=== PATIENT | male | born 1940 | race Caucasian/White ===

== ENCOUNTER 2023-03-09 15:46 | Outpatient (CLI) | payer MEDICARE, OTHER ==
[~2023-03-09 15:46] MED LIST: ALBU8HFA IH; ALLO100T PO; FLO44IN IH; HYDR-3095 PO; LORA1TAB PO; MOME17SP5 NS; THY15T PO
[2023-03-09] MEDS ORDERED: GADOTERATE MEGLUMINE 7.5 MMOL/15 ML VIAL IV ONE (17:20)
== END 2023-03-09 23:59 | disposition home or self-care (01) ==
LOC: RAD 15:46
PROVIDERS: ATTEND Family Medicine
DX: R16.0 Hepatomegaly, not elsewhere classified (principal); K80.20 Calculus of gallbladder without cholecystitis without obstruction; K86.89 Other specified diseases of pancreas; N28.1 Cyst of kidney, acquired; I77.1 Stricture of artery; K44.9 Diaphragmatic hernia without obstruction or gangrene; R10.9 Unspecified abdominal pain
CPT/HCPCS: 74183; A9575

== ENCOUNTER 2023-09-06 08:38 | Outpatient (CLI) | payer MEDICARE, OTHER ==
[2023-09-06] MEDS ORDERED: GADOTERATE MEGLUMINE 7.5 MMOL/15 ML VIAL IV ONE (10:18)
== END 2023-09-06 23:59 | disposition home or self-care (01) ==
LOC: RAD 08:38
PROVIDERS: ATTEND Family Medicine
DX: G44.221 Chronic tension-type headache, intractable (principal); G44.52 New daily persistent headache (NDPH)
CPT/HCPCS: 70553; A9575

== ENCOUNTER 2024-03-08 09:50 | Outpatient (CLI) | payer MEDICARE, OTHER ==
[2024-03-08 10:25] LABS: BASOPHILS % (AUTO) 0.4 % (0-1); EOSINOPHILS # (AUTO) 0.2 X10'3 (0-0.9); EOSINOPHILS % (AUTO) 1.9 % (0-6); HEMATOCRIT 42.9 % (42.0-52.0); MEAN CORPUSCULAR HEMOGLOBIN 30.4 PG (27.0-31.0); MEAN CORPUSCULAR HGB CONC 32.7 g/dL (33.0-36.5); MEAN CORPUSCULAR VOLUME 93.1 FL (78-98); MONOCYTES # (AUTO) 0.7 X10'3 (0-0.9); MONOCYTES % (AUTO) 7.1 % (2-12); NEUTROPHILS # (AUTO) 8.1 X10'3 (1.8-7.7); NEUTROPHILS % (AUTO) 80.6 % (42-75); PLATELET COUNT 220 X10'3 (140-440); RED BLOOD COUNT 4.61 X10'6 (4.70-6.10); RED CELL DISTRIBUTION WIDTH 15.3 % (11.5-14.5)
[2024-03-08] MEDS ORDERED: IODIXANOL 320 MG/ML INFUS..BTL 100ML IV ONE (10:31)
[2024-03-08 10:36] LABS: APTT 27 SECONDS (22-32); PROTHROMBIN TIME 10.4 SECONDS (9.0-12.0)
[2024-03-08 11:18] LABS: ALANINE AMINOTRANSFERASE 8 U/L (12-78); ALBUMIN 3.2 G/DL (3.4-5.0); ALBUMIN/GLOBULIN RATIO 0.8 (1.1-1.5); ALKALINE PHOSPHATASE 111 IU/L (46-116); ANION GAP 11 (8-16); ASPARTATE AMINO TRANSFERASE 15 U/L (10-37); BILIRUBIN,TOTAL 0.5 MG/DL (0.1-1.0); BLOOD UREA NITROGEN 24 MG/DL (7-18); BUN/CREATININE RATIO 21.4 (10.0-20.0); CHLORIDE 106 MMOL/L (99-107); CREATININE 1.12 MG/DL (0.60-1.10); GLUCOSE 111 MG/DL (70-104); POTASSIUM 4.1 MMOL/L (3.5-5.1); PRO BRAIN NATRIURETIC PEPTIDE 112 PG/ML (0-450); SODIUM 141 MMOL/L (135-145); TOTAL CARBON DIOXIDE 24.2 MMOL/L (24-32); eGFR 63 ML/MIN
[2024-03-08] MEDS ORDERED: diphenhydrAMINE 50 mg/ml inj ONE (11:52)
== END 2024-03-08 23:59 | disposition home or self-care (01) ==
LOC: RAD 09:50
PROVIDERS: ATTEND Internal Medicine Cardiovascular Disease
DX: N28.1 Cyst of kidney, acquired (principal); N20.0 Calculus of kidney; I65.29 Occlusion and stenosis of unspecified carotid artery; I35.0 Nonrheumatic aortic (valve) stenosis; K44.9 Diaphragmatic hernia without obstruction or gangrene; R91.1 Solitary pulmonary nodule; J98.4 Other disorders of lung; J98.11 Atelectasis; M41.86 Other forms of scoliosis, lumbar region; M43.8X7 Other specified deforming dorsopathies, lumbosacral region; R06.02 Shortness of breath; I70.0 Atherosclerosis of aorta
CPT/HCPCS: 36415; 71046; 71275; 74174; 75572; 80053; 83880; 85025; 85610; 85730; J3490; Q9967; J1200

== ENCOUNTER 2024-04-27 07:39 | Inpatient (IN) | payer MEDICARE, OTHER ==
[2024-04-21 13:22] LABS: BASOPHILS % (AUTO) 0.4 % (0-1); EOSINOPHILS # (AUTO) 0.1 X10'3 (0-0.9); EOSINOPHILS % (AUTO) 0.9 % (0-6); LYMPHOCYTES # (AUTO) 1.2 X10'3 (1.1-4.8); LYMPHOCYTES % (AUTO) 15.1 % (21-51); MEAN CORPUSCULAR HEMOGLOBIN 30.7 PG (27.0-31.0); MEAN CORPUSCULAR HGB CONC 32.7 g/dL (33.0-36.5); MEAN CORPUSCULAR VOLUME 93.8 FL (78-98); MEAN PLATELET VOLUME 8.3 FL (7.4-10.4); MONOCYTES # (AUTO) 0.5 X10'3 (0-0.9); MONOCYTES % (AUTO) 6.2 % (2-12); NEUTROPHILS # (AUTO) 6.2 X10'3 (1.8-7.7); NEUTROPHILS % (AUTO) 77.4 % (42-75); PRE OP HEMATOCRIT 41.8 % (42.0-52.0); PRE OP HEMOGLOBIN 13.7 g/dL (14.0-17.9); PRE OP PLATELET COUNT 226 X10'3 (140-440); RED BLOOD COUNT 4.46 X10'6 (4.70-6.10); RED CELL DISTRIBUTION WIDTH 15.6 % (11.5-14.5)
[2024-04-21 13:33] LABS: PRE OP PROTIME 10.6 SECONDS (9.0-12.0)
[2024-04-21 13:43] LABS: ALBUMIN 3.6 G/DL (3.4-5.0); ALKALINE PHOSPHATASE 99 IU/L (46-116); BLOOD UREA NITROGEN 19 MG/DL (7-18); BUN/CREATININE RATIO 17.8 (10.0-20.0); CALCIUM 9.2 MG/DL (8.5-10.1); CHLORIDE 102 MMOL/L (99-107); CREATININE 1.07 MG/DL (0.60-1.10); PRE OP ALT 17 U/L (30-65); PRE OP ANION GAP 7 (8-16); PRE OP AST 17 U/L (10-37); PRE OP BILIRUB, TOTAL 0.7 MG/DL (0.0-1.0); PRE OP GLUCOSE 102 MG/DL (70-104); PRE OP POTASSIUM 4.2 MMOL/L (3.4-5.1); PRE OP SODIUM 137 MMOL/L (135-145); PRO BRAIN NATRIURETIC PEPTIDE 125 PG/ML (0-450); THYROID STIMULATING HORMONE 0.87 ulU/ml (0.34-4.50); TOTAL CARBON DIOXIDE 28.1 MMOL/L (24-32); TOTAL PROTEIN 7.1 G/DL (6.4-8.2); eGFR 66 ML/MIN
[2024-04-27] VITALS (23 sets, daily range): BP systolic 101–136; BP diastolic 62–81; PULSE 73–90; RESP 8–20; TEMP 97.8–98.1; O2SAT 92–99
[~2024-04-27] VITALS: Ht 182.9 cm; Wt 79.3 kg
[~2024-04-27 07:39] MED LIST changes: +ARMO50TA4 PO; +BUPR-114 PO; +CARB1TAB41 PO; +DULO30CA52 PO; +FINA5TAB11 PO; +FLO0.4C PO; -HYDR-3095 PO; +HYDR-4294 PO; +MULT-1085 PO; +TADA5TAB4 PO; +ondansetron/PF 4mg/2ml inj IV PRN
[2024-04-27] MEDS: protamine sulfate 10mg/ml inj. ONE (07:55)
[2024-04-27] MEDS ORDERED: meperidine/PF 25mg/ml syringe IV PRN (08:20)
[2024-04-27] MEDS ORDERED: morphine 4 MG/ML inj SYRINge IV PRN (08:20)
[2024-04-27] MEDS ORDERED: morphine 2 MG/ML inj. syringe IV PRN (08:20)
[2024-04-27] MEDS: acetaminophen 1,000mg/100ml IV 100 ML IV ONE (08:20)
[2024-04-27] MEDS ORDERED: ondansetron/PF 4mg/2ml inj IV PRN ×2 (08:20→11:35)
[2024-04-27] MEDS ORDERED: proCHLORperazine 10 MG/2 ml inj IV PRN ×2 (08:20→11:35)
[2024-04-27] MEDS: ringers solution, lacted 1,000 ML IV SCH ×2 (08:20→09:04)
[2024-04-27] MEDS ORDERED: hydrALAZINE 20mg/ml inj. IV PRN ×2 (08:20→11:35)
[2024-04-27] MEDS ORDERED: labetalol 20mg/4ml (5mg/ml) syringe IV PRN ×2 (08:20→11:35)
[2024-04-27] MEDS ORDERED: HYDROmorphone/PF 0.2 MG/ML SYRINGE IV PRN ×2 (08:20)
[2024-04-27] MEDS ORDERED: CARB1TAB44 PO (08:44)
[2024-04-27] MEDS ORDERED: LEVO50TA66 PO (08:46)
[2024-04-27] MEDS ORDERED: HYDR-4318 PO (08:49)
[2024-04-27] MEDS ORDERED: MV-M1CAP18 (08:56)
[2024-04-27] MEDS: clopidogrel 75mg tablet PO ONE (09:04)
[2024-04-27] MEDS: famotidine 20mg tablet PO ONE (09:04)
[2024-04-27] MEDS: nitroPRUSSIDE (NIPRIDE) (200MCG/ML) 100ML Drip IV ONE (09:05)
[2024-04-27] MEDS: vancomycin/NS 1 GM in NS 250 ML IV ONE (09:05)
[2024-04-27] MEDS: cefazolin 2gm/D5W 100mL 100 ML IV ONE (09:05)
[2024-04-27] MEDS: phenylephrine inj 50 MG in normal saline 250ml IV solN IV ONE (09:05)
[2024-04-27] MEDS ORDERED: LIDOcaine 1% (10mg/ml) 2ml vial ONE (09:50)
[2024-04-27] MEDS ORDERED: LIDOcaine 1% 30ml preserv. free vial ONE (10:14)
[2024-04-27] MEDS ORDERED: heparin 1,000 UNITS/NS 500ml 1,500 ML ONE (10:14)
[2024-04-27] MEDS ORDERED: iohexol 350MG/ML 100ml bottle IV ONE (10:14)
[2024-04-27] MEDS ORDERED: fentaNYL/PF 50MCG/1 ML 2ML syringe ONE (10:29)
[2024-04-27] MEDS ORDERED: midazolam 1 mg/ML 2ml injection ONE (10:36)
[2024-04-27] MEDS ORDERED: heparin 1,000unit/ml 10ml vial 10 ML ONE (10:37)
[2024-04-27] MEDS ORDERED: propofol inj 20 ML IV ONE ×3 (10:37)
[2024-04-27] MEDS ORDERED: non-formulary drug (Tadalafil 1 TAB) PO PRN (10:45)
[2024-04-27] MEDS ORDERED: HYDROCODONE PO PRN (10:45)
[2024-04-27] MEDS ORDERED: ACETAMINOPHEN PO PRN (10:45)
[2024-04-27] MEDS ORDERED: HYDR-3964 PO (11:04)
[2024-04-27] MEDS ORDERED: [UNRECOGNIZED DRUG - CODE] PO (11:20)
[2024-04-27] MEDS ORDERED: potassium Cl 40MEQ/1/2NS 520ml 520 ML IV PRN (11:35)
[2024-04-27] MEDS ORDERED: potassium CL 10mEq/100ml bag 100 ML IV PRN (11:35)
[2024-04-27] MEDS ORDERED: magnesium 2GM in 50ml NS 50 ML IV PRN (11:35)
[2024-04-27] MEDS ORDERED: pantoprazole 40mg Tablet.DR PO PRN (11:35)
[2024-04-27] MEDS ORDERED: magnesium 4gm in 100ml NS 100 ML IV PRN (11:35)
[2024-04-27] MEDS ORDERED: docusate sod 100mg capsule PO PRN (11:35)
[2024-04-27] MEDS ORDERED: acetaminophen 325mg tablet PO PRN (11:35)
[2024-04-27] MEDS ORDERED: potassium Cl 40MEQ/270ML bag 250 ML IV PRN (11:35)
[2024-04-27] MEDS ORDERED: potassium Cl 20mEq/100mL bag 100 ML IV PRN (11:35)
[2024-04-27] MEDS ORDERED: potassium Cl 20 mEq SR tablet PO PRN (11:35)
[2024-04-27] MEDS ORDERED: allopurinol 100mg tablet PO SCH ×2 (12:00)
[2024-04-27] MEDS ORDERED: allopurinol 300 MG tablet PO SCH (12:00)
[2024-04-27] MEDS: hydrocortisone 10mg tablet PO SCH (13:00)
[2024-04-27] MEDS: carbidoba-levodopa 25-100mg tablet PO SCH (13:59)
[2024-04-27] MEDS: allopurinol 300 MG tablet PO SCH (14:00)
[2024-04-27] MEDS: HYDROcodone/acetaminophen 5mg/325mg tablet PO PRN ×2 (15:23→20:55)
[2024-04-27] MEDS: sod chloride 0.9% 10ml flush syringe IV SCH (16:26)
[2024-04-27] MEDS: normal saline 1000ml 1,000 ML IV SCH (16:26)
[2024-04-27] MEDS: ceFAZolin 1GM/D5W- ADD-VANTAGE 50 ML IV SCH (17:10)
[2024-04-27] MEDS: duloxetine 30mg CAPSULE.DR PO SCH (20:00)
[2024-04-27] MEDS: diphenhydrAMINE 25mg capsule PO PRN (20:28)
[2024-04-27] MEDS: tamsulosin 0.4mg capsule PO SCH (20:28)
[2024-04-27] MEDS: carbidopa/levodopa 25/100mg CR tablet PO SCH (20:29)
[2024-04-27] MEDS: vancomycin/NS 1 GM ADD-VANTAGE 250 ML IV SCH (20:30)
[2024-04-27] MEDS: ALPRAZolam 0.25mg tablet PO PRN (23:02)
[2024-04-28 02:42] VITALS: O2SAT 88; O2SAT 91
[2024-04-28 06:00] VITALS: BP 117/58; PULSE 76; RESP 26; TEMP 98.2; O2SAT 98
[2024-04-28 07:01] LABS: BASOPHILS % (AUTO) 0.3 % (0-1); EOSINOPHILS # (AUTO) 0.1 X10'3 (0-0.9); EOSINOPHILS % (AUTO) 1.3 % (0-6); HEMATOCRIT 37.3 % (42.0-52.0); HEMOGLOBIN 12.2 g/dl (14.0-17.9); LYMPHOCYTES # (AUTO) 0.9 X10'3 (1.1-4.8); LYMPHOCYTES % (AUTO) 10.9 % (21-51); MEAN CORPUSCULAR HEMOGLOBIN 30.8 PG (27.0-31.0); MEAN CORPUSCULAR HGB CONC 32.8 g/dL (33.0-36.5); MEAN CORPUSCULAR VOLUME 93.8 FL (78-98); MEAN PLATELET VOLUME 8.4 FL (7.4-10.4); MONOCYTES # (AUTO) 0.8 X10'3 (0-0.9); MONOCYTES % (AUTO) 9.4 % (2-12); NEUTROPHILS # (AUTO) 6.6 X10'3 (1.8-7.7); NEUTROPHILS % (AUTO) 78.1 % (42-75); PLATELET COUNT 159 X10'3 (140-440); RED BLOOD COUNT 3.97 X10'6 (4.70-6.10); RED CELL DISTRIBUTION WIDTH 15.5 % (11.5-14.5); WHITE BLOOD COUNT 8.5 X10'3 (4.5-11.0)
[2024-04-28 07:25] LABS: ALANINE AMINOTRANSFERASE 7 U/L (12-78); ALBUMIN/GLOBULIN RATIO 0.9 (1.1-1.5); ALKALINE PHOSPHATASE 92 IU/L (46-116); ANION GAP 8 (8-16); ASPARTATE AMINO TRANSFERASE 18 U/L (10-37); BILIRUBIN,TOTAL 0.7 MG/DL (0.1-1.0); BLOOD UREA NITROGEN 21 MG/DL (7-18); CALCIUM 8.8 MG/DL (8.5-10.1); CHLORIDE 105 MMOL/L (99-107); GLUCOSE 94 MG/DL (70-104); MAGNESIUM 2.3 MG/DL (1.5-2.4); POTASSIUM 3.9 MMOL/L (3.5-5.1); PRO BRAIN NATRIURETIC PEPTIDE 316 PG/ML (0-450); SODIUM 138 MMOL/L (135-145); TOTAL CARBON DIOXIDE 25.2 MMOL/L (24-32); TOTAL PROTEIN 6.3 G/DL (6.4-8.2); eCRCL 63 ML/MIN; eGFR 72 ML/MIN
[2024-04-28] MEDS: multivitamins, therapeutics tablet PO SCH (07:52)
[2024-04-28] MEDS: clopidogrel 75mg tablet PO SCH ×2 (07:52→08:00)
[2024-04-28] MEDS: levoTHYROXINE 25mcg tablet PO SCH (07:52)
[2024-04-28] MEDS: buPROPion SR 150mg tablet PO SCH (07:52)
[2024-04-28] MEDS ORDERED: allopurinol 300 MG tablet PO SCH (08:00)
[2024-04-28] MEDS: armodafinil 50mg tablet PO SCH (08:00)
[2024-04-28] MEDS: finasteride 5mg tablet PO SCH (11:09)
[2024-04-28 12:04] VITALS: BP 118/73; PULSE 73; RESP 16; TEMP 98.5; O2SAT 96
[2024-04-28 12:13] VITALS: RESP 16
[2024-04-28] MEDS ORDERED: CLOP75TA34 PO (16:05)
== END 2024-04-28 17:14 | disposition home or self-care (01) | DRG 267 ==
LOC: PAS IN 07:39 → PCU 3S 16:22
PROVIDERS: ADMIT Internal Medicine Cardiovascular Disease; ATTEND Internal Medicine Cardiovascular Disease
PROC: B41G1ZZ Fluoroscopy of Left Lower Extremity Arteries using Low Osmolar Contrast (ICD-10-PCS; 2024-04-27)
PROC: B41F1ZZ Fluoroscopy of Right Lower Extremity Arteries using Low Osmolar Contrast (ICD-10-PCS; 2024-04-27)
PROC: B3101ZZ Fluoroscopy of Thoracic Aorta using Low Osmolar Contrast (ICD-10-PCS; 2024-04-27)
PROC: 02RF38Z Replacement of Aortic Valve with Zooplastic Tissue, Percutaneous Approach (ICD-10-PCS; principal; 2024-04-27 10:24)
DX: I35.0 Nonrheumatic aortic (valve) stenosis (principal); Z00.6 Encounter for examination for normal comparison and control in clinical research program; I10 Essential (primary) hypertension; E78.5 Hyperlipidemia, unspecified; G20.A1 Parkinson's disease without dyskinesia, without mention of fluctuations; Z79.02 Long term (current) use of antithrombotics/antiplatelets
CPT/HCPCS: 33361; 36415; 71045; 71046; 76937; 80053; 82948; 83735; 83880; 84443; 85025; 85347; 85610; 85730; 86885; 86900; 86901; 86920; 87077; 87081; 87088; 87186; 93005; 93308; A4615; A4618; A6258; A6449; C1756; C1760; C1769; C1894; G0378; J0690; J1644; J2250; J2371; J2704; J2720; J3010; J3370; J3490; J7030; J7040; J7050; J7120; Q0163; Q9967

== ENCOUNTER 2025-06-05 06:18 | Outpatient (CLI) | payer MEDICARE, OTHER ==
[2025-06-05] VITALS (22 sets, daily range): BP systolic 64–110; BP diastolic 24–71; PULSE 84–109
[~2025-06-05 06:18] MED LIST changes: -ALBU8HFA IH; -ALLO100T PO; +CARB1TAB44 PO; -FLO44IN IH; +HYDR-3964 PO; -HYDR-4294 PO; +HYDR-4318 PO; +LEVO50TA66 PO; -LORA1TAB PO; -MOME17SP5 NS; +MV-M1CAP18; -THY15T PO; +[UNRECOGNIZED DRUG - CODE] PO; -ondansetron/PF 4mg/2ml inj IV PRN
== END 2025-06-05 23:59 | disposition home or self-care (01) ==
LOC: CARD DIAG 06:18
PROVIDERS: ATTEND Family Medicine
DX: R42 Dizziness and giddiness (principal); R53.1 Weakness; I95.89 Other hypotension
CPT/HCPCS: 93660